=== PATIENT | male | born 1965 | race Asian ===

== ENCOUNTER 2017-02-16 13:26 | Emergency (ER) | payer OTHER ==
[2017-02-16] MEDS: ALBUTEROL 0.083% (NEB) 2.5 MG/3 ML AMP NEB (15:17)
[2017-02-16] MEDS: IPRATROPIUM (NEB) 0.5 MG/2.5 ML AMP NEB (15:17)
== END 2017-02-16 15:57 | disposition home or self-care (01) ==
LOC: FTE 13:26 → E/R 15:57
DX: J45.21 Mild intermittent asthma with (acute) exacerbation (principal); L25.9 Unspecified contact dermatitis, unspecified cause
CPT/HCPCS: 94664; 99284-25

== ENCOUNTER 2018-10-19 10:38 | Observation (INO) | payer OTHER ==
[2018-10-19] MEDS: METHYLPREDNISOLONE 125 MG INJ IM (11:39)
[2018-10-19] MEDS: ALBUTEROL 0.083% (NEB) 2.5 MG/3 ML AMP NEB (11:57)
[2018-10-19] MEDS: IPRATROPIUM (NEB) 0.5 MG/2.5 ML AMP NEB (11:58)
[2018-10-19] MEDS: ALBUTEROL 0.5% (NEB) 2.5 MG/0.5 ML AMP INH (14:01)
[2018-10-19 15:49] LABS: ADD MAN DIFF? NO
[2018-10-19 15:50] LABS: WHITE BLOOD COUNT 5.8 10^3/ul (4.8-10.8)
[2018-10-19 15:50] LABS: BASOPHILS % 0.5 % (0.0-2.0); EOSINOPHILS % 0.2 % (0.0-7.0); HEMATOCRIT 48.8 % (42.0-52.0); HEMOGLOBIN 16.2 g/dl (14.0-18.0); LYMPHOCYTES # 0.6 10^3/ul (0.8-2.9); LYMPHOCYTES % 10.3 % (15.0-51.0); MEAN CORPUSCULAR HEMOGLOBIN 31.8 pg (29.0-33.0); MEAN CORPUSCULAR HGB CONC 33.2 g/dl (32.0-37.0); MEAN CORPUSCULAR VOLUME 95.9 fl (82.0-101.0); MEAN PLATELET VOLUME 9.7 fl (7.4-10.4); MONOCYTE # 0.1 10^3/ul (0.3-0.9); MONOCYTES % 0.9 % (0.0-11.0); NEUTROPHIL # 5.1 10^3/ul (1.6-7.5); NEUTROPHILS % 87.9 % (39.0-77.0); PLATELET COUNT 234 10^3/UL (140-415); RED BLOOD COUNT 5.09 10^6/ul (4.70-6.10); RED CELL DISTRIBUTION WIDTH 11.9 % (11.5-14.5)
[2018-10-19 16:13] LABS: ANION GAP 9 (5-13); BLOOD UREA NITROGEN 15 mg/dl (7-20); CALCIUM 9.8 mg/dl (8.4-10.2); CARBON DIOXIDE 25 mmol/L (21-31); CHLORIDE 106 mmol/L (97-110); CREATININE 1.09 mg/dl (0.61-1.24); Estimated GFR > 60 mL/min (>60); GLUCOSE 141 mg/dl (70-220); POTASSIUM 4.4 mmol/L (3.5-5.1); SODIUM 140 mmol/L (135-144)
[2018-10-19 16:25] LABS: TROPONIN-I < 0.012 ng/ml (0.000-0.120)
[2018-10-19] MEDS ORDERED: ACETAMINOPHEN 325 MG TAB PO ×2 (17:00→22:00)
[2018-10-19] MEDS ORDERED: ONDANSETRON 4 MG INJ IV (17:00)
[2018-10-19] MEDS: ALBUTEROL/IPRATROPIUM (NEB) 3 ML AMP HHN (21:34)
[2018-10-19] MEDS: HYDROCORTISONE 2.5% 28.35 GM OINT TOP (22:00)
[2018-10-19] MEDS ORDERED: DOCUSATE SODIUM 100 MG CAP PO (22:00)
[2018-10-19] MEDS ORDERED: ONDANSETRON 4 MG TAB PO (22:00)
[2018-10-19] MEDS ORDERED: NON-FORMULARY/PATIENT OWN MED (Salmeterol Xinaf/Fluticasone* (Advair*) 1 INH) INHALATION (22:00)
[2018-10-19] MEDS ORDERED: NACL 0.9% 3 ML SYG IV (22:00)
[2018-10-20] MEDS: FAMOTIDINE 20 MG TAB PO ×3 (00:01→21:13)
[2018-10-20 06:07] LABS: ADD MAN DIFF? NO
[2018-10-20 06:14] LABS: WHITE BLOOD COUNT 8.1 10^3/ul (4.8-10.8)
[2018-10-20 06:14] LABS: ABNORMAL IP MESSAGE 1; HEMATOCRIT 42.7 % (42.0-52.0); HEMOGLOBIN 14.2 g/dl (14.0-18.0); LYMPHOCYTES # 0.5 10^3/ul (0.8-2.9); LYMPHOCYTES % 6.4 % (15.0-51.0); MEAN CORPUSCULAR HEMOGLOBIN 31.9 pg (29.0-33.0); MEAN CORPUSCULAR HGB CONC 33.3 g/dl (32.0-37.0); MONOCYTE # 0.5 10^3/ul (0.3-0.9); MONOCYTES % 5.9 % (0.0-11.0); NEUTROPHIL # 7.1 10^3/ul (1.6-7.5); NEUTROPHILS % 87.3 % (39.0-77.0); PLATELET COUNT 256 10^3/UL (140-415); POSITIVE DIFF @See below; RED BLOOD COUNT 4.45 10^6/ul (4.70-6.10); RED CELL DISTRIBUTION WIDTH 11.9 % (11.5-14.5)
[2018-10-20 06:45] LABS: CREATINE KINASE 239 IU/L (23-200)
[2018-10-20 06:57] LABS: CK INDEX 0.5; CK-MB 1.17 ng/ml (0.0-2.4); TROPONIN-I < 0.012 ng/ml (0.000-0.120)
[2018-10-20 07:01] LABS: ANION GAP 6 (5-13); BLOOD UREA NITROGEN 18 mg/dl (7-20); CALCIUM 9.7 mg/dl (8.4-10.2); CARBON DIOXIDE 26 mmol/L (21-31); CHLORIDE 106 mmol/L (97-110); CREATININE 0.92 mg/dl (0.61-1.24); Estimated GFR > 60 mL/min (>60); GLUCOSE 123 mg/dl (70-220); POTASSIUM 4.4 mmol/L (3.5-5.1); SODIUM 138 mmol/L (135-144)
[2018-10-20 07:14] LABS: THYROID STIMULATING HORMONE 0.215 MIU/L (0.465-4.680)
[2018-10-20] MEDS: ALBUTEROL/IPRATROPIUM (NEB) 3 ML AMP HHN ×5 (08:00→20:18)
[2018-10-20 08:08] LABS: HEMOGLOBIN A1C 5.5 % (0-5.9)
[2018-10-20] MEDS: HYDROCORTISONE 2.5% 28.35 GM OINT TOP ×2 (09:00→21:00)
[2018-10-20] MEDS: METHYLPREDNISOLONE 40 MG INJ IV (09:01)
[2018-10-20] MEDS: ENOXAPARIN 40 MG/0.4 ML SYG SC (09:02)
[2018-10-20 12:17] LABS: CREATINE KINASE 228 IU/L (23-200)
[2018-10-20 12:30] LABS: CK INDEX 0.3; CK-MB 0.69 ng/ml (0.0-2.4); TROPONIN-I < 0.012 ng/ml (0.000-0.120)
[2018-10-20] MEDS: FLUTICASONE/VILANTEROL 100-25 INH (16:18)
[2018-10-20] MEDS: AZITHROMYCIN 250 MG TAB PO (17:41)
[2018-10-21] MEDS: HYDROCORTISONE 2.5% 28.35 GM OINT TOP (09:00)
[2018-10-21] MEDS: ALBUTEROL/IPRATROPIUM (NEB) 3 ML AMP HHN (09:11)
[2018-10-21] MEDS: METHYLPREDNISOLONE 40 MG INJ IV (09:13)
[2018-10-21] MEDS: AZITHROMYCIN 250 MG TAB PO (09:13)
[2018-10-21] MEDS: FAMOTIDINE 20 MG TAB PO (09:13)
[2018-10-21] MEDS: FLUTICASONE/VILANTEROL 100-25 INH (09:14)
[2018-10-21] MEDS: ENOXAPARIN 40 MG/0.4 ML SYG SC (09:15)
== END 2018-10-21 13:10 | disposition home or self-care (01) ==
LOC: FTE 10:38 → PP2 17:00
DX: J45.901 Unspecified asthma with (acute) exacerbation (principal)
CPT/HCPCS: 71046; 80048; 82550; 82553; 83036; 84443; 84484; 85025; 85378; 93005; 94640; 94664; 96372; 99217; 99285-25; G0378